=== PATIENT | female | born 1945 | race Caucasian/White ===

== ENCOUNTER 2016-05-09 16:05 | Emergency (ER) | payer MEDICARE ==
[~2016-05-09] VITALS: Ht 147.3 cm; Wt 70.0 kg
[~2016-05-09 16:05] MED LIST: AMLO2.5T PO; AUGM125S PO; CLON.1T PO; CLOP75 PO; GLUCTAB PO; LISI30TA4 PO; ROSU40 PO; ZOLO25TA PO
[2016-05-09 16:08] VITALS: BP 142/77; PULSE 107; RESP 20; TEMP 98; O2SAT 94
--- NOTE | 2016-05-09 16:45 | PD ---
HPI Chief Complaint: Cold / Flu Symptoms Time Seen by Provider: 16:45 Travel History International Travel<30 days: No Contact w/Intl Traveler<30days: No Traveled to known affect area: No History of Present Illness HPI 70-year-old female presents to the emergency Department with complaint of cough , nasal congestion body aches, fever since Saturday. Reports MAXIMUM TEMPERATURE of 102.0. She did receive the flu vaccine this year. Denies chest pain or chest tightness. Reports shortness of breath with cough exacerbations. Cough is worse at night and is very aggravating. Denies wheezing. Denies history of COPD or asthma. Denies abdominal pain, nausea, vomiting. Has tried multiple [id number] medications with no relief of symptoms. No known aggravating factors. Is on Plavix for history of bypass surgery. History of diabetes type 2 and hypertension. Allergies to Augmentin, Demerol, sulfa. No other modifying factors or associated signs and symptoms. PFSH Past Medical History Hx Anticoagulant Therapy: Yes Anxiety: Yes Cancer: No Cardiac Catheterization: Yes (2007) Cardiovascular Problems: Yes High Cholesterol: Yes Coronary Artery Disease: Yes Diabetes: Yes Endocrine: Yes Genitourinary: No Hepatitis: No Hiatal Hernia: No Hypertension: Yes Immune Disorder: No Musculoskeletal: No Neurologic: No Psychiatric: No Reproductive: No Respiratory: No Thyroid Disease: No ?: Not Menopausal: Yes Past Surgical History AICD: No Cardiac Surgery: Yes Cholecystectomy: Yes (1979) Coronary Artery Bypass Graft: Yes (TRIPLE BYPASS) Joint Replacement: No Pacemaker: No Tonsillectomy: Yes Other Surgery: Yes (2007 CORONARY BYPASS) Social History Alcohol Use: No Tobacco Use: No Substance Use: No Allergies-Medications (Allergen,Severity, Reaction): Coded Allergies: Augmentin (Verified Allergy, Intermediate, VOMITING, 05/09/16) Demerol (Verified Allergy, Unknown, 05/09/16) Sulfa (Verified Allergy, Unknown, 05/09/16) Reported Meds & Prescriptions Reported Meds & Active Scripts Active Reported Omeprazole 20 Mg Tab 20 Mg PO BID Metoprolol Tartrate 50 Mg Tab 50 Mg PO BID Metformin (Metformin HCl) 500 Mg Tab 1,000 Mg PO BID With meals Amlodipine (Amlodipine Besylate) 5 Mg Tab 10 Mg PO DAILY Lasix (Furosemide) 40 Mg Tab 40 Mg PO DAILY Losartan (Losartan Potassium) 50 Mg Tab 100 Mg PO DAILY Atorvastatin (Atorvastatin Calcium) 20 Mg Tab 20 Mg PO HS Coricidin Hbp Cold & Flu (Chlorpheniramine-Acetaminophen) 2-325 Mg Tab 1 Tab PO Q4H PRN Review of Systems Except as stated in HPI: all other systems reviewed are Neg Physical Exam Narrative GENERAL: Well-nourished, well-developed patient, in no acute distress; appears like she does not feel well, nontoxic appearing SKIN: Warm and dry. No rash. HEAD: Atraumatic. Normocephalic. EYES: Pupils equal and round at 3 mm with brisk reaction. No scleral icterus. No injection or drainage. PERRLA. ENT: Mucosa pink and moist. Oropharynx with erythema; without edema or exudates. No uvular edema. No uvular, palatal, or tonsillar deviation. Airway patent. EARS: Bilateral pinnae and external canals appear within normal limits. Bilateral tympanic membranes without erythema, dullness or perforation. NECK: Trachea midline. No lymphadenopathy. CARDIOVASCULAR: Regular rate and rhythm. No murmur appreciated. . RESPIRATORY: No accessory muscle use. Clear to auscultation. Breath sounds equal bilaterally. GASTROINTESTINAL: Abdomen soft, non-tender, nondistended. Hepatic and splenic margins not palpable. Bowel sounds are active 4 quadrants. MUSCULOSKELETAL: No obvious deformities. No clubbing. No cyanosis. No edema. NEUROLOGICAL: Awake and alert. Oriented 3. No obvious cranial nerve deficits. Motor grossly within normal limits. Normal speech. Moves all extremities. 5/5 strength to all extremities. PSYCHIATRIC: Appropriate mood and affect; insight and judgment normal. Data Data Last Documented VS Vital Signs Date Time Temp Pulse Resp B/P Pulse Ox O2 Delivery O2 Flow Rate FiO2 05/09/16 16:08 98.0 107 20 142/77 94 Room Air Orders Influenzae A/B Antigen (05/09/16 16:32) Chest, Single Ap (05/09/16 16:32) Prednisone (Deltasone) (05/09/16 17:30) Albuterol Neb (Albuterol Neb) (05/09/16 17:30) MDM Medical Decision Making Medical Screen Exam Complete: Yes Emergency Medical Condition: Yes Medical Record Reviewed: Yes Differential Diagnosis Influenza, bronchitis, pneumonia, sinusitis Narrative Course 70-year-old female with cold/flu symptoms since Saturday. Patient appears like she doesn't feel well. She is nontoxic-appearing. She is afebrile in the ER. Reports MAXIMUM TEMPERATURE of 102.0 at home. Patient reports shortness of breath with cough exacerbations, otherwise denies shortness of breath. Denies chest pain or chest tightness. Lungs are clear and equal throughout. No retractions or tachypnea. Albuterol nebulizer and Deltasone administered in the ER. Chest x-ray and influenza ordered. 1712: Chest x-ray no acute findings. 1755: Influenza negative. Discussed viral illness and symptomatic management with the patient. I did offer to check labs and the patient declined at this time. She does feel comfortable going home with symptom management and being treated with antibiotics. She says she will return if her symptoms do not improve. Azithromycin, pro-air inhaler, Deltasone, Tessalon Perles, Nasonex nasal spray prescribed for home. The patient's take Tylenol as directed and as needed for pain/fever. Patient verbalizes understanding and agreement with treatment plan. Patient is medically cleared and stable for discharge. Discussed reasons to return to the emergency department. Instructed patient to follow up with primary care provider. Patient agrees with treatment plan. The patients vital signs are stable and the patient is stable for outpatient follow- up and treatment. Patient discharged home, stable and in no acute distress. Diagnosis Primary Impression: Bronchitis Additional Impression: Upper respiratory infection Qualified Code: J06.9 - Upper respiratory tract infection, unspecified type Referrals: Primary Care Physician Patient Instructions: Acute Bronchitis (ED), General Instructions, Safe Use of Cough and Cold Medicines (ED) Departure Forms: Tests/Procedures, Work Release Special Instructions: May return to work when fever free for 24 hours Additional Instructions: Use Albuterol inhaler as prescribed Take oral steroids as prescribed and complete full course Use Tessalon Perles as prescribed to decrease coughing spasms [id number] decongestants or antihistamines as directed and as needed for symptom management Your cough can last 4-6 weeks Drink plenty of fluids to prevent dehydration Use hot air humidifier to decrease cough exacerbation Turn off ceiling fans and sleep with head of bed elevated Avoid triggers such as second hand smoke, dust, known allergens Follow-up with your primary care provider Return to the emergency department immediately with worsening of symptoms Med/Other Pt SpecificInfo: Prescription(s) given Disposition: 01 DISCHARGE HOME Condition: Stable Marly Aguayo May 09, 2016 16:45
[2016-05-09] MEDS ORDERED: CORITAB2 PO (17:01)
[2016-05-09] MEDS ORDERED: ZETI10TA5 PO (17:02)
--- NOTE | 2016-05-09 17:08 | RADRPT ---
EXAM DATE/TIME: 05/09/2016 16:43 [facility] COMPARISON: CHEST SINGLE AP, March 31, 2012, 16:32. INDICATIONS : Cough. MEDICAL HISTORY : Hypertension. SURGICAL HISTORY : CABG. ENCOUNTER: Initial ACUITY: 4 - 6 days PAIN SCORE: 0/10 LOCATION: Bilateral chest FINDINGS: A single view of the chest demonstrates the lungs to be symmetrically, but under aerated without infi ltrate. Intact median sternotomy wires with surgical clips characteristic of a reported history of CA BG. Heart size is normal. Osseous structures are intact. CONCLUSION: No acute cardiopulmonary process. Pete Santiago MD on May 09, 2016 at 17:06 Board Certified Radiologist. This report was verified electronically.
[2016-05-09] MEDS ORDERED: PRED-503 PO (17:25)
[2016-05-09] MEDS ORDERED: MOME17I EACH NARE (17:25)
[2016-05-09] MEDS ORDERED: BENZ100 PO (17:25)
[2016-05-09] MEDS ORDERED: AZIT500T2 PO (17:25)
[2016-05-09] MEDS ORDERED: ALBUAER3 INH (17:26)
[2016-05-09] MEDS ORDERED: predniSONE 20 MG TAB PO ONE (17:30)
[2016-05-09] MEDS ORDERED: RESP: ALBUTEROL 2.5 MG/3 ML NEB (SCH) INH ONE (17:30)
[2016-05-09] MEDS ORDERED: METO50TA PO (17:55)
[2016-05-09] MEDS ORDERED: METF500T PO (17:55)
[2016-05-09] MEDS ORDERED: ATOR20TA15 PO (17:55)
[2016-05-09] MEDS ORDERED: OMEP20TA PO (17:55)
[2016-05-09] MEDS ORDERED: LOSA50TA PO (17:55)
[2016-05-09] MEDS ORDERED: FURO1TAB60 PO (17:55)
[2016-05-09] MEDS ORDERED: AMLO5TAB2 PO (17:55)
== END 2016-05-09 18:15 | disposition home or self-care (01) ==
LOC: NEPB 16:05
DX: J40 Bronchitis, not specified as acute or chronic (principal); J06.9 Acute upper respiratory infection, unspecified; M79.1 Myalgia; R50.9 Fever, unspecified; E11.9 Type 2 diabetes mellitus without complications; I10 Essential (primary) hypertension; E78.00 Pure hypercholesterolemia, unspecified; Z95.1 Presence of aortocoronary bypass graft; Z79.01 Long term (current) use of anticoagulants; Z79.84 Long term (current) use of oral hypoglycemic drugs; Z86.59 Personal history of other mental and behavioral disorders; Z86.79 Personal history of other diseases of the circulatory system
CPT/HCPCS: 71010; 87804; 94664; 99283; J7512; J7613